=== PATIENT | female | born 1940 | race Caucasian/White ===

== ENCOUNTER → 2017-06-15 | Outpatient (CLI) | payer MEDICARE, BC ==
[~2017-06-15] MED LIST: 00186-0370-20 IH; ALLER-TEC; AMBIEN 5MG TABLE5 MG PO; ARMOUR THYROID15 MG PO; ATROVENT INHALE14 GM IH; BIAXIN 250MG T250 M1; BIOTIN1000 MCG PO; CALCIUM 600 PLU1 TAB PO; CALCIUM 6001 TA1 PO; COUMADIN 2MG2 MG/TAB; CYMBALTA 30MG30 MG PO; ELMIRON 10100 MG/CA1 PO; EPA FISH OIL1000 MG PO; FISH OIL CONC1000 MG PO; LISINOPRIL5 MG PO; LOMOTIL 0.025 M1 TAB PO; MVI; NORCO 325 MG-7.1 TAB PO; NORVASC 5MG5 MG/TAB PO; OSCAL 500MG/VI500 MG PO; PREMARIN .3MG0.3 MG PO; PRIL40; PROAIR HFA0.09 MG/AC IH; PROTONIX20 MG PO; REGLAN 10MG10 MG/TAB; REGLAN 10MG10 MG/TAB PO; SINGULAIR 110 MG/TAB PO; TRIMPEX100 MG PO; ULTRAM 50MG TAB50 MG PO; VITAMIN B12 PO; VITAMIN D31000 IU PO; VITAMIN D32000 IU PO; ZANTAC 150MG T150 MG PO; ZYRTEC 10MG10 MG PO; [UNRECOGNIZED DRUG - OTHER] PO
== END ==
LOC: MC.RAD 14:12
DX: Z12.31 Encounter for screening mammogram for malignant neoplasm of breast (principal)